=== PATIENT | male | born 1955 | race Hispanic/Latino ===

== ENCOUNTER 2020-03-20 09:35 | Emergency (ER) | payer MEDICARE ==
--- NOTE | 2020-03-20 13:22 | XRay Report ---
CHEST 1 VIEW INDICATION: hypertension. COMPARISON: None. FINDINGS: Support devices: None. Heart: Normal. Lungs/Pleura: No acute pulmonary or pleural findings. IMPRESSION: 1. No acute findings. Signer Name: Ray Acosta MD Signed: 03/20/2020 1:17 PM Workstation Name: [id number]
[2020-03-20 13:29] LABS: Basophils % (Auto) 0.6 % (0.0-1.8); Eosinophils # (Auto) 0.1 K/mm3 (0.0-0.4); Eosinophils % (Auto) 2.7 % (0.0-4.3); Hematocrit 42.8 % (35.5-45.6); Hemoglobin 14.5 gm/dl (11.8-15.2); Lymphocytes # (Auto) 0.4 K/mm3 (1.2-5.4); Lymphocytes % (Auto) 7.7 % (13.4-35.0); Mean Corpuscular HGB Conc 34 % (32-34); Mean Corpuscular Volume 93 fl (84-94); Monocytes # (Auto) 0.5 K/mm3 (0.0-0.8); Monocytes % (Auto) 9.6 % (0.0-7.3); Red Blood Count 4.59 M/mm3 (3.65-5.03); Red Cell Distribution Width 15.4 % (13.2-15.2)
[2020-03-20 13:32] LABS: Platelet Count 84 K/mm3 (140-440)
[2020-03-20] MEDS ORDERED: TETANUS,DIPHTHERIA TOXOID ADULT 0.5 ML INJ IM ONE (13:34)
[2020-03-20 13:37] LABS: INR 1.19 (0.87-1.13)
[2020-03-20 13:38] LABS: Partial Thromboplastin Time 29.6 Sec. (24.2-36.6)
[2020-03-20 13:50] LABS: Calcium 8.6 mg/dL (8.4-10.2)
[2020-03-20 13:55] LABS: Alanine Aminotransferase 57 units/L (7-56); Bilirubin,Direct 0.5 mg/dL (0-0.2)
[2020-03-20] MEDS ORDERED: SODIUM CHLORIDE 0.9% 1000 ML 1,000 ML IV ONE (13:55)
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
[2020-03-20] MEDS ORDERED: INSULIN REGULAR, HUMAN 100 UNIT/ML 3ML VIAL IV ONE ×2 (13:57→20:23)
[2020-03-20] MEDS ORDERED: INSULIN REGULAR, HUMAN 100 UNITS/1 ML ONE ×2 (14:30→20:30)
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
[2020-03-20] MEDS ORDERED: ETOMIDATE 20 MG/10 ML INJ IV ONE ×2 (14:53→15:03)
[2020-03-20] MEDS ORDERED: SUCCINYLCHOLINE CHLORIDE 200 MG/10 ML INJ MDV ONE (14:54)
[2020-03-20] MEDS ORDERED: ROCURONIUM 50 MG/5 ML INJ IV ONE (14:54)
[2020-03-20] MEDS ORDERED: SUCCINYLCHOLINE CHLORIDE 200 MG/10 ML INJ MDV IV ONE (15:03)
[2020-03-20] MEDS ORDERED: NORepinephrine/NS 4 MG-250 ML 4 MG/250 ML BAG IV ONE (15:18)
[2020-03-20] MEDS ORDERED: NALOXONE 2 MG/2 ML INJ ONE (15:20)
[2020-03-20] MEDS ORDERED: NALOXONE 2 MG/2 ML INJ IV ONE (15:20)
[2020-03-20 17:49] LABS: Bilirubin,Urine NEG (Negative); Blood,Urine NEG (Negative); Color,Urine Yellow (Yellow); Mucus,Urine FEW /HPF; Protein,Urine <15 mg/dL mg/dL (Negative); Urobilinogen,Urine < 2.0 mg/dL (<2.0)
[2020-03-20 21:51] VITALS: BP 96/46
== END 2020-03-20 23:31 | disposition admitted as inpatient to this hospital (09) ==
LOC: ED 09:35
DX: T40.2X4A Poisoning by other opioids, undetermined, initial encounter (principal); D69.6 Thrombocytopenia, unspecified; J96.90 Respiratory failure, unspecified, unspecified whether with hypoxia or hypercapnia; I95.9 Hypotension, unspecified; E11.65 Type 2 diabetes mellitus with hyperglycemia; Z94.4 Liver transplant status; I10 Essential (primary) hypertension; F17.200 Nicotine dependence, unspecified, uncomplicated; Z79.899 Other long term (current) drug therapy
CPT/HCPCS: 31500; 36415; 70450; 71045; 72125; 72131; 80048; 80076; 81001; 82140; 82550; 82553; 82962; 83735; 83880; 84484; 85025; 85610; 85730; 90471; 90714; 93005; 94002; 96361; 96374; 96375; 96376; 99285; J0330; J2310; J7030; 96372; J1815